=== PATIENT | female | born 1945 | race Caucasian/White ===

== ENCOUNTER → 2018-03-25 | Outpatient (CLI) | payer MEDICARE, OTHER ==
[~2018-03-25] MED LIST: ADULT LOW DOSE81 MG PO; ASPIRIN EC325 M1; CALCIUM 500 +1 EAC5 PO; CARDIZEM CD120 MG PO; FISH OIL 1,0001 EAC5 PO; FISHOIL PO; FLECAINIDE ACET50 M1 PO; FOSAMAX 70 MG T70 MG PO; LEVOTHROID PO; LO-DOSE ASPIRIN81 M1; MULTIVITAMINS PO; PRADAXA150 MG PO; PRAVASTATIN SOD40 MG PO; SIMVASTATIN20 MG PO; SOTALOL 120 MG120 M1 PO; SYNTHROID100 MCG; SYNTHROID50 MCG PO; XARELTO20 MG PO
[2018-03-25 10:20] LABS: ALBUMIN 3.9 g/dL (3.4-5.0); ALKALINE PHOSPHATASE 81 U/L (46-116); DIRECT BILIRUBIN 0.1 mg/dL (<0.1-0.3); SGOT 19 U/L (15-37); SGPT 31 U/L (30-65); TOTAL BILIRUBIN 0.4 mg/dL (<0.1-1.0); TOTAL PROTEIN 7.5 g/dL (6.4-8.2)
[2018-03-25 10:41] LABS: CHOLESTEROL 181 mg/dL (<200); HDL CHOLESTEROL 64 mg/dL (>40); LDL CHOLESTEROL 109 mg/dL (<100); TC:HDL 2.8 Ratio (Not establshd); TRIGLYCERIDE 40 mg/dL (<150); VLDL 8 mg/dL (<40)
[2018-03-25 10:45] LABS: SERUM ASSESSMENT Clear
== END ==
LOC: M.RAD 09:44
PROVIDERS: Internal Medicine
DX: N64.4 Mastodynia (principal); E78.2 Mixed hyperlipidemia

== ENCOUNTER → 2019-03-29 | Outpatient (CLI) | payer MEDICARE, OTHER | LOC: M.RAD 09:30 | DX: Z12.31 Encounter for screening mammogram for malignant neoplasm of breast (principal) ==

== ENCOUNTER → 2019-05-17 | Outpatient (CLI) | payer MEDICARE, OTHER | LOC: M.RAD 04-29 14:30 | DX: M81.0 Age-related osteoporosis without current pathological fracture (principal) ==

== ENCOUNTER → 2020-06-01 | Outpatient (CLI) | payer MEDICARE, OTHER | LOC: M.RAD 10:00 | PROVIDERS: ATTEND Family Medicine | DX: Z12.31 Encounter for screening mammogram for malignant neoplasm of breast (principal) ==

== ENCOUNTER → 2021-05-24 | Outpatient (CLI) | payer MEDICARE, OTHER | LOC: M.RAD 05-23 10:00 | PROVIDERS: ATTEND Family Medicine | DX: Z12.31 Encounter for screening mammogram for malignant neoplasm of breast (principal) ==

== ENCOUNTER → 2021-05-29 | Outpatient (CLI) | payer MEDICARE, OTHER | LOC: M.ULTRA 08:50 | PROVIDERS: ATTEND Family Medicine | DX: N60.01 Solitary cyst of right breast (principal); N63.10 Unspecified lump in the right breast, unspecified quadrant ==

== ENCOUNTER → 2021-07-16 | Outpatient (CLI) | payer MEDICARE, OTHER | LOC: M.RAD 13:30 | PROVIDERS: ATTEND Family Medicine | DX: M81.0 Age-related osteoporosis without current pathological fracture (principal); M85.80 Other specified disorders of bone density and structure, unspecified site ==